=== PATIENT | male | born 1935 | race Caucasian/White ===

== ENCOUNTER 2020-07-21 11:58 | Emergency (ER) | payer OTHER ==
[~2020-07-21 11:58] MED LIST: PROTONIX 40MG T40 MG PO; TYLENOL #31 EACH PO
[2020-07-21 13:44] LABS: BASOPHIL 0.3 % (0-2); EOSINOPHIL 2.5 % (0-7); HCT 31.2 % (42.0-52.0); HGB 9.4 g/dl (13.2-18.0); LYMPHOCYTE 11.6 % (15-48); MCH 27.2 pg (25.0-31.0); MCHC 30.1 g/dL (32.0-36.0); MCV 90.2 fL (78.0-100.0); MONOCYTE 6.4 % (0-12); MPV 11.6 fL (6.0-9.5); NEUTROPHIL 78.9 % (41-80); NRBC 0; PLT 225 K/uL (150-400); RBC 3.46 M/uL (4.70-6.00); RDW 15.6 % (11.5-14.0); WBC 9.9 K/uL (4.0-10.5)
[2020-07-21 13:58] LABS: INR 1.11 (0.9-1.2); PROTHROMBIN TIME 13.6 SECONDS (11.4-13.6); PTT 34.3 SECONDS (22.2-34.7)
[2020-07-21 13:59] LABS: D-DIMER 1.4 ug/mLFEU (0.00-0.41)
[2020-07-21 14:01] LABS: ALBUMIN 3.1 g/dL (3.4-5.0); BILIRUBIN - TOTAL 0.4 mg/dL (0.2-1.0); BUN/CREAT RATIO (CALC) 14.1 RATIO; CREATININE 2.13 mg/dL (0.67-1.17); GLOBULIN (CALCULATION) 3.8 g/dL; POTASSIUM 4.9 mmol/L (3.5-5.1); TOTAL PROTEIN 6.9 g/dL (6.4-8.2)
[2020-07-21 14:30] LABS: LACTIC ACID 0.9 mmol/L (0.4-1.9)
== END 2020-07-21 16:48 | disposition other institution (70) ==
LOC: FER 11:58
PROVIDERS: Emergency Medicine
DX: J96.02 Acute respiratory failure with hypercapnia (principal); R79.1 Abnormal coagulation profile; I11.0 Hypertensive heart disease with heart failure; I50.9 Heart failure, unspecified; I25.10 Atherosclerotic heart disease of native coronary artery without angina pectoris; E11.9 Type 2 diabetes mellitus without complications; J44.9 Chronic obstructive pulmonary disease, unspecified; Z85.118 Personal history of other malignant neoplasm of bronchus and lung; Z95.1 Presence of aortocoronary bypass graft; Z95.0 Presence of cardiac pacemaker; Z79.82 Long term (current) use of aspirin; Z99.81 Dependence on supplemental oxygen; Z87.891 Personal history of nicotine dependence; Z20.822 Contact with and (suspected) exposure to COVID-19
CPT/HCPCS: 36415; 36600; 71045; 80053; 82803; 83605; 83880; 84484; 85025; 85379; 85610; 85730; 87040; 93005; J2930; U0002

== ENCOUNTER 2020-08-13 13:03 | Emergency (ER) | payer OTHER ==
[2020-08-13 15:26] LABS: BASOPHIL 0.1 % (0-2); EOSINOPHIL 4.6 % (0-7); HCT 30.5 % (42.0-52.0); HGB 9.3 g/dl (13.2-18.0); LYMPHOCYTE 10.5 % (15-48); MCH 26.8 pg (25.0-31.0); MCHC 30.5 g/dL (32.0-36.0); MCV 87.9 fL (78.0-100.0); MONOCYTE 7.9 % (0-12); MPV 11.8 fL (6.0-9.5); NEUTROPHIL 76.6 % (41-80); NRBC 0; PLT 156 K/uL (150-400); RBC 3.47 M/uL (4.70-6.00); RDW 16.3 % (11.5-14.0); WBC 6.8 K/uL (4.0-10.5)
[2020-08-13 15:48] LABS: ALBUMIN 2.5 g/dL (3.4-5.0); BILIRUBIN - TOTAL 0.4 mg/dL (0.2-1.0); BUN/CREAT RATIO (CALC) 15.4 RATIO; CREATININE 2.27 mg/dL (0.67-1.17); GLOBULIN (CALCULATION) 3.6 g/dL; POTASSIUM 4.9 mmol/L (3.5-5.1); TOTAL PROTEIN 6.1 g/dL (6.4-8.2)
== END 2020-08-14 04:06 | disposition other institution (70) ==
LOC: FER 13:03
PROVIDERS: Physician Assistant
DX: I50.9 Heart failure, unspecified (principal); E11.22 Type 2 diabetes mellitus with diabetic chronic kidney disease; E11.65 Type 2 diabetes mellitus with hyperglycemia; N18.9 Chronic kidney disease, unspecified; R05 Cough; Z20.822 Contact with and (suspected) exposure to COVID-19; I25.10 Atherosclerotic heart disease of native coronary artery without angina pectoris; J44.9 Chronic obstructive pulmonary disease, unspecified; Z86.73 Personal history of transient ischemic attack (TIA), and cerebral infarction without residual deficits; Z79.4 Long term (current) use of insulin; Z95.1 Presence of aortocoronary bypass graft; Z87.891 Personal history of nicotine dependence
CPT/HCPCS: 36415; 71045; 80053; 83880; 84484; 85025; 93005; U0002

== ENCOUNTER 2020-08-18 10:35 | Inpatient (IN) | payer OTHER ==
[2020-08-18 13:04] LABS: BILIRUBIN NEGATIVE (NEGATIVE); BLOOD NEGATIVE Ery/uL (NEGATIVE); CLARITY CLEAR (CLEAR); COLOR YELLOW (YELLOW); GLUCOSE (U) NORMAL (NORMAL); LEUKOCYTES NEGATIVE Leu/uL (NEGATIVE); NITRITE NEGATIVE (NEGATIVE); PROTEIN TRACE (LOW) mg/dL (NEGATIVE); SPECIFIC GRAVITY 1.015 (1.001-1.030); UROBILINOGEN 0.2 mg/dL (0.2-1.0); pH 7.5 (5.0-9.0)
[2020-08-18 13:04] LABS: BASOPHIL 0.3 % (0-2); EOSINOPHIL 7.9 % (0-7); HGB 9.9 g/dl (13.2-18.0); LYMPHOCYTE 11.3 % (15-48); MCH 26.8 pg (25.0-31.0); MCHC 30.9 g/dL (32.0-36.0); MCV 86.5 fL (78.0-100.0); MONOCYTE 9.3 % (0-12); MPV 11.4 fL (6.0-9.5); NEUTROPHIL 70.6 % (41-80); NRBC 0; PLT 240 K/uL (150-400); RDW 16.1 % (11.5-14.0); WBC 7.1 K/uL (4.0-10.5)
[2020-08-18 13:08] LABS: PROTHROMBIN TIME 12.5 SECONDS (11.4-13.6); PTT 34.6 SECONDS (22.2-34.7)
[2020-08-18 13:18] LABS: ALBUMIN 2.5 g/dL (3.4-5.0); BILIRUBIN - TOTAL 0.3 mg/dL (0.2-1.0); BUN/CREAT RATIO (CALC) 16.8 RATIO; CREATININE 2.62 mg/dL (0.67-1.17); GLOBULIN (CALCULATION) 3.4 g/dL; POTASSIUM 4.7 mmol/L (3.5-5.1); TOTAL PROTEIN 5.9 g/dL (6.4-8.2)
[2020-08-18 13:23] LABS: BACTERIA TRACE
[2020-08-18 13:30] LABS: LACTIC ACID 1.3 mmol/L (0.4-1.9)
--- NOTE | 2020-08-18 17:49 | NUR ---
PATIENT UNABLE TO VERBALIZE WHAT HOME MEDICATIONS HE TAKES AT HOME. STATES SOMEONE FILLS A BOTTLE FOR HIM AND HE JUST TAKES THEM. HAS BOTTLE AT BEDSIDE WITH MULTIPLE MEDICATIONS IN IT BUT UNSURE WHAT THEY ARE. DAUGHTER LISTED ON FACE SHEET AND UNABLE TO REACH. PATIENT STATES HE DOES NOT GO TO [facility] WHICH IS LISTED UNDER HIS PHARMACY. MEDICATION HISTORY SHOES USED [facility]TS RECENTLY. CALLED [facility] ALSO UNABLE TO REACH. ALSO UNABLE TO ERACH PCP
[2020-08-18] MEDS ORDERED: NORVASC5 MG PO (18:24)
[2020-08-18] MEDS ORDERED: PEPCID AC20 MG PO (18:24)
[2020-08-18] MEDS ORDERED: PLAVIX75 MG PO (18:24)
[2020-08-18] MEDS ORDERED: NEURONTIN300 MG PO (18:25)
[2020-08-18] MEDS ORDERED: SINGULAIR10 MG PO (18:25)
[2020-08-18] MEDS ORDERED: DEMADEX20 MG PO (18:26)
[2020-08-18] MEDS ORDERED: ATORVASTATIN CA80 MG PO (18:35)
[2020-08-18] MEDS ORDERED: PROTONIX 40MG T40 MG PO (18:36)
[2020-08-18] MEDS ORDERED: ISOSORBIDE MONO60 MG PO (18:36)
[2020-08-18] MEDS ORDERED: [UNRECOGNIZED DRUG - OTHER] SC (18:39)
[2020-08-18] MEDS ORDERED: TRESIBA (18:39)
--- NOTE | 2020-08-18 22:36 | NUR ---
RECIEVED MEDICAL RECORD FROM [facility], PLACED IN CHART
[2020-08-19 06:19] LABS: HCT 29.4 % (42.0-52.0); HGB 9.3 g/dl (13.2-18.0); MCH 26.9 pg (25.0-31.0); MCHC 31.6 g/dL (32.0-36.0); MPV 11.3 fL (6.0-9.5); RBC 3.46 M/uL (4.70-6.00); RDW 16.2 % (11.5-14.0); WBC 6.8 K/uL (4.0-10.5)
[2020-08-19 06:39] LABS: BUN/CREAT RATIO (CALC) 16.2 RATIO; CREATININE 2.4 mg/dL (0.67-1.17); POTASSIUM 3.9 mmol/L (3.5-5.1)
[2020-08-20 05:50] LABS: HCT 28.6 % (42.0-52.0); HGB 8.9 g/dl (13.2-18.0); MCH 26.6 pg (25.0-31.0); MCHC 31.1 g/dL (32.0-36.0); MCV 85.6 fL (78.0-100.0); MPV 11.2 fL (6.0-9.5); RBC 3.34 M/uL (4.70-6.00); RDW 16.1 % (11.5-14.0); WBC 5.6 K/uL (4.0-10.5)
[2020-08-20 06:06] LABS: BUN/CREAT RATIO (CALC) 18.8 RATIO; CREATININE 2.18 mg/dL (0.67-1.17); POTASSIUM 4.2 mmol/L (3.5-5.1)
[2020-08-20] MEDS ORDERED: LASIX20 MG PO (10:26)
--- NOTE | 2020-08-26 12:09 | NUR ---
RECEIVED A CALL FROM [facility] ON 08/25 AT 1800. CALLER WAS REQUESTING A COPY OF PATIENT'S D/C MEDICATION LIST. SHE WAS CONCERNED THAT PATIENT WAS TAKING LASIX AND BUMEX AT THE SAME TIME BECAUSE THE PATIENT HAD PICKED UP THE LASIX RX AT ANOTHER PHARMACY AND SHE HAD NO PROOF THAT THE BUMEX WAS DISCONTINUED. BECAUSE THERE WAS NO WAY TO PROVIDE A RELEASE OF INFORMATION FROM THE PATIENT, THE CALLER WAS ASKED TO CALL THE PATIENT AND HIS DAUGHTER. ATTEMPTED MANY TIMES TO CALL THE DAUGHTER AT THE NUMBER ON FILE FROM [facility]. HOWEVER, THERE WAS ONLY A BUSY SIGNAL WITH EVERY ATTEMPT. CALLED THE PATIENT'S NUMBER AND A FEMALE HOME OFFICE CLAIMS EXAMINER ANSWERED THE PHONE. SHE WAS GIVEN THE NUMBER TO [facility] AND ASKED IF SHE HEARD FROM THE PATIENT'S DAUGHTER TO PLEASE HAVE HER CALL AND ASK TO BE TRANSFERRED TO THE PRINT PROJECT MANAGER. PLACED CALL TODAY TO [facility] TO INFORM THEM THAT THIS RN WAS UNABLE TO MAKE CONTACT WITH THE PATIENT OR DAUGHTER. PER DENISE, THE PATIENT NOR DAUGHTER HAVE CONTACTED THEM. WILL ADDRESS IF DAUGHTER RETURNS CALL TO [facility].
== END 2020-08-20 13:36 | disposition home or self-care (01) | DRG 683 ==
LOC: FER 10:35 → FMS 15:28
PROVIDERS: Internal Medicine; ADMIT Hospitalist
DX: N17.9 Acute kidney failure, unspecified (principal); S05.32XA Ocular laceration without prolapse or loss of intraocular tissue, left eye, initial encounter; I13.0 Hypertensive heart and chronic kidney disease with heart failure and stage 1 through stage 4 chronic kidney disease, or unspecified chronic kidney disease; E11.22 Type 2 diabetes mellitus with diabetic chronic kidney disease; N18.30 Chronic kidney disease, stage 3 unspecified; S01.21XA Laceration without foreign body of nose, initial encounter; W01.0XXA Fall on same level from slipping, tripping and stumbling without subsequent striking against object, initial encounter; S01.112A Laceration without foreign body of left eyelid and periocular area, initial encounter; Y93.9 Activity, unspecified; M19.90 Unspecified osteoarthritis, unspecified site; I25.10 Atherosclerotic heart disease of native coronary artery without angina pectoris; Z20.822 Contact with and (suspected) exposure to COVID-19; E11.9 Type 2 diabetes mellitus without complications; I10 Essential (primary) hypertension; Y92.003 Bedroom of unspecified non-institutional (private) residence as the place of occurrence of the external cause; Z95.810 Presence of automatic (implantable) cardiac defibrillator; Z95.2 Presence of prosthetic heart valve; Z85.118 Personal history of other malignant neoplasm of bronchus and lung; Z79.4 Long term (current) use of insulin; Z79.01 Long term (current) use of anticoagulants; J44.9 Chronic obstructive pulmonary disease, unspecified; I50.9 Heart failure, unspecified
CPT/HCPCS: 36415; 70450; 70480; 71045; 72125; 73502; 80048; 80053; 81001; 82962; 83605; 83880; 84145; 84484; 85025; 85610; 85730; 93005; 97166; 97530; J0456; J0696; J7030; J7040; J7050; U0002

== ENCOUNTER 2020-10-07 12:08 | Emergency (ER) | payer OTHER ==
[~2020-10-07 12:08] MED LIST changes: +ATORVASTATIN CA80 MG PO; +DEMADEX20 MG PO; +ISOSORBIDE MONO60 MG PO; +LASIX20 MG PO; +NEURONTIN300 MG PO; +NORVASC5 MG PO; +PEPCID AC20 MG PO; +PLAVIX75 MG PO; +SINGULAIR10 MG PO; +TRESIBA; +[UNRECOGNIZED DRUG - OTHER] SC
[2020-10-07 13:02] LABS: BASOPHIL 0.5 % (0-2); EOSINOPHIL 3.3 % (0-7); HCT 27.1 % (42.0-52.0); HGB 8.4 g/dl (13.2-18.0); LYMPHOCYTE 16.2 % (15-48); MCH 26.6 pg (25.0-31.0); MCV 85.8 fL (78.0-100.0); MONOCYTE 9.7 % (0-12); MPV 11.7 fL (6.0-9.5); NEUTROPHIL 69.9 % (41-80); NRBC 0; PLT 242 K/uL (150-400); RBC 3.16 M/uL (4.70-6.00); RDW 16.4 % (11.5-14.0); WBC 7.6 K/uL (4.0-10.5)
[2020-10-07 13:10] LABS: BUN/CREAT RATIO (CALC) 16.3 RATIO; CREATININE 2.45 mg/dL (0.67-1.17); POTASSIUM 4.1 mmol/L (3.5-5.1)
== END 2020-10-07 14:36 | disposition home or self-care (01) ==
LOC: FER 12:08
PROVIDERS: Nurse Practitioner Family
DX: S01.01XA Laceration without foreign body of scalp, initial encounter (principal); S51.812A Laceration without foreign body of left forearm, initial encounter; I10 Essential (primary) hypertension; E11.9 Type 2 diabetes mellitus without complications; J44.9 Chronic obstructive pulmonary disease, unspecified; Z79.02 Long term (current) use of antithrombotics/antiplatelets; W18.09XA Striking against other object with subsequent fall, initial encounter; Y92.009 Unspecified place in unspecified non-institutional (private) residence as the place of occurrence of the external cause
CPT/HCPCS: 36415; 70450; 72125; 80048; 85025

== ENCOUNTER 2020-10-18 14:33 | Inpatient (IN) | payer OTHER ==
[~2020-10-18] VITALS: Ht 180.3 cm; Wt 91.6 kg
[2020-10-18 16:16] LABS: BASOPHIL 0.4 % (0-2); EOSINOPHIL 2.7 % (0-7); HCT 24.4 % (42.0-52.0); HGB 7.4 g/dl (13.2-18.0); LYMPHOCYTE 13.9 % (15-48); MCH 26.7 pg (25.0-31.0); MCHC 30.3 g/dL (32.0-36.0); MCV 88.1 fL (78.0-100.0); MONOCYTE 8.4 % (0-12); MPV 12.2 fL (6.0-9.5); NEUTROPHIL 74.4 % (41-80); NRBC 0; PLT 236 K/uL (150-400); RBC 2.77 M/uL (4.70-6.00); RDW 16.6 % (11.5-14.0); WBC 9.7 K/uL (4.0-10.5)
[2020-10-18 16:25] LABS: BUN/CREAT RATIO (CALC) 17.8 RATIO; CREATININE 2.42 mg/dL (0.67-1.17)
[2020-10-18 19:20] LABS: CORONAVIRUS 2019 SARS-COV-2 NEGATIVE (NEGATIVE); INFLUENZA A NAA NEGATIVE (NEGATIVE)
[2020-10-18 22:36] LABS: IRON % SATURATION 8.6 %SAT (20-50)
[2020-10-18] MEDS ORDERED: ASPIRIN EC81 MG PO (23:20)
[2020-10-18] MEDS ORDERED: VENTOLIN HFA18 GM INH (23:21)
[2020-10-18] MEDS ORDERED: BUMETANIDE2 MG PO (23:28)
[2020-10-18] MEDS ORDERED: COREG25 MG PO (23:29)
[2020-10-18] MEDS ORDERED: BUMEX1 MG PO (23:29)
[2020-10-18] MEDS ORDERED: SPIRIVA18 MCG INH (23:30)
[2020-10-18] MEDS ORDERED: VITAMIN B-12100 MCG PO (23:31)
[2020-10-19 04:26] LABS: BASOPHIL 0.2 % (0-2); EOSINOPHIL 2.8 % (0-7); HCT 24.1 % (42.0-52.0); HGB 7.2 g/dl (13.2-18.0); LYMPHOCYTE 13.3 % (15-48); MCHC 29.9 g/dL (32.0-36.0); MONOCYTE 7.7 % (0-12); MPV 11.2 fL (6.0-9.5); NEUTROPHIL 75.8 % (41-80); NRBC 0; PLT 222 K/uL (150-400); RBC 2.77 M/uL (4.70-6.00); RDW 16.6 % (11.5-14.0); WBC 8.2 K/uL (4.0-10.5)
[2020-10-19 04:45] LABS: BUN/CREAT RATIO (CALC) 18.5 RATIO; CREATININE 2.32 mg/dL (0.67-1.17)
[2020-10-19 14:59] LABS: BUN/CREAT RATIO (CALC) 18.2 RATIO; CREATININE 2.25 mg/dL (0.67-1.17); POTASSIUM 4.4 mmol/L (3.5-5.1)
[2020-10-20 05:58] LABS: BILIRUBIN NEGATIVE (NEGATIVE); BLOOD NEGATIVE Ery/uL (NEGATIVE); CLARITY CLEAR (CLEAR); COLOR YELLOW (YELLOW); GLUCOSE (U) NORMAL (NORMAL); LEUKOCYTES NEGATIVE Leu/uL (NEGATIVE); NITRITE NEGATIVE (NEGATIVE); PROTEIN NEGATIVE (NEGATIVE); SPECIFIC GRAVITY 1.015 (1.001-1.030); UROBILINOGEN 0.2 mg/dL (0.2-1.0)
[2020-10-20 06:26] LABS: URINARY RBC RARE; URINARY WBC RARE
[2020-10-20 06:26] LABS: BASOPHIL 0.3 % (0-2); EOSINOPHIL 2.6 % (0-7); HCT 30.6 % (42.0-52.0); LYMPHOCYTE 12.1 % (15-48); MCH 27.6 pg (25.0-31.0); MCHC 31.7 g/dL (32.0-36.0); MCV 87.2 fL (78.0-100.0); MONOCYTE 7.9 % (0-12); MPV 11.6 fL (6.0-9.5); NEUTROPHIL 76.9 % (41-80); NRBC 0; PLT 220 K/uL (150-400); RBC 3.51 M/uL (4.70-6.00); WBC 9.9 K/uL (4.0-10.5)
[2020-10-20 06:27] LABS: SQUAMOUS EPITHELIAL CELLS RARE
[2020-10-20 06:29] LABS: HGB 9.7 g/dl (13.2-18.0)
[2020-10-20 06:54] LABS: ALBUMIN 2.9 g/dL (3.4-5.0); BUN/CREAT RATIO (CALC) 17.6 RATIO; CREATININE 2.21 mg/dL (0.67-1.17); GLOBULIN (CALCULATION) 3.5 g/dL; MAGNESIUM 2.1 mg/dL (1.8-2.4); POTASSIUM 4.4 mmol/L (3.5-5.1); TOTAL PROTEIN 6.4 g/dL (6.4-8.2)
--- NOTE | 2020-10-20 12:59 | NUR ---
10/20/20 Mr. Lacey and his girlfriend of 42 years share an apartment together. He has home 02 at 2 L, rw, motorized wc, 3in1, s. chair, and lift chair. [facility] has been notified of admission via CONEXANCE MD. Please notify [facility] at [phone] if patient is discharged over the weekend.
[2020-10-21 04:34] LABS: BASOPHIL 0.3 % (0-2); EOSINOPHIL 3.2 % (0-7); HCT 28.9 % (42.0-52.0); HGB 9.2 g/dl (13.2-18.0); LYMPHOCYTE 11.8 % (15-48); MCH 27.5 pg (25.0-31.0); MCHC 31.8 g/dL (32.0-36.0); MCV 86.5 fL (78.0-100.0); MONOCYTE 9.4 % (0-12); MPV 11.2 fL (6.0-9.5); NEUTROPHIL 75.1 % (41-80); NRBC 0; PLT 210 K/uL (150-400); RBC 3.34 M/uL (4.70-6.00); RDW 16.1 % (11.5-14.0); WBC 9.3 K/uL (4.0-10.5)
[2020-10-21 05:02] LABS: BUN/CREAT RATIO (CALC) 17.8 RATIO; CREATININE 2.3 mg/dL (0.67-1.17); MAGNESIUM 2.1 mg/dL (1.8-2.4); PHOSPHORUS 4.1 mg/dL (2.6-4.7)
[2020-10-22 04:12] LABS: BASOPHIL 0.3 % (0-2); EOSINOPHIL 3.4 % (0-7); HCT 32.1 % (42.0-52.0); HGB 10.2 g/dl (13.2-18.0); LYMPHOCYTE 12.5 % (15-48); MCH 27.3 pg (25.0-31.0); MCHC 31.8 g/dL (32.0-36.0); MCV 85.8 fL (78.0-100.0); MONOCYTE 9.4 % (0-12); MPV 11.5 fL (6.0-9.5); NEUTROPHIL 74.1 % (41-80); NRBC 0; PLT 220 K/uL (150-400); RBC 3.74 M/uL (4.70-6.00); RDW 15.9 % (11.5-14.0); WBC 8.8 K/uL (4.0-10.5)
[2020-10-22 04:32] LABS: BUN/CREAT RATIO (CALC) 20.6 RATIO; CREATININE 2.57 mg/dL (0.67-1.17); PHOSPHORUS 4.3 mg/dL (2.6-4.7); POTASSIUM 3.9 mmol/L (3.5-5.1)
[2020-10-23 05:43] LABS: BASOPHIL 0.2 % (0-2); EOSINOPHIL 3.1 % (0-7); HCT 31.1 % (42.0-52.0); HGB 10.2 g/dl (13.2-18.0); LYMPHOCYTE 11.1 % (15-48); MCH 27.6 pg (25.0-31.0); MCHC 32.8 g/dL (32.0-36.0); MCV 84.1 fL (78.0-100.0); MONOCYTE 9.1 % (0-12); MPV 11.1 fL (6.0-9.5); NEUTROPHIL 76.1 % (41-80); NRBC 0; PLT 231 K/uL (150-400); WBC 11.6 K/uL (4.0-10.5)
[2020-10-23 05:59] LABS: BUN/CREAT RATIO (CALC) 22.5 RATIO; CREATININE 3.11 mg/dL (0.67-1.17); POTASSIUM 3.6 mmol/L (3.5-5.1)
[2020-10-24 05:44] LABS: HCT 32.4 % (42.0-52.0); HGB 10.6 g/dl (13.2-18.0); MCH 27.3 pg (25.0-31.0); MCHC 32.7 g/dL (32.0-36.0); MCV 83.5 fL (78.0-100.0); MPV 12.2 fL (6.0-9.5); RBC 3.88 M/uL (4.70-6.00); RDW 16.2 % (11.5-14.0); WBC 11.8 K/uL (4.0-10.5)
[2020-10-24 06:24] LABS: CREATININE 3.48 mg/dL (0.67-1.17); POTASSIUM 4.1 mmol/L (3.5-5.1)
--- NOTE | 2020-10-24 14:47 | NUR ---
DR GONZALEZ CONSULTED FOR PT VIA TELEPHONE AT THIS TIME. WAS GIVEN PT BUN, CREATININE, CO2, BICARB, OUTPUT AMOUNT, MEDICATION LIST, ASSESSMENT OF BREATHING, RECENT MED HISTORY AND NEW ORDERS WERE GIVEN TO BLADDER SCAN AFTER NEXT VOID, OBTAIN A URINE ANALYSIS, DC NORVASC, CHECK MAG PHOS CBC AND BMP IN THE AM
[2020-10-25 05:54] LABS: BASOPHIL 0.3 % (0-2); EOSINOPHIL 1.5 % (0-7); HCT 30.9 % (42.0-52.0); HGB 10.1 g/dl (13.2-18.0); LYMPHOCYTE 9.2 % (15-48); MCH 27.2 pg (25.0-31.0); MCHC 32.7 g/dL (32.0-36.0); MCV 83.1 fL (78.0-100.0); MONOCYTE 9.7 % (0-12); NRBC 0; PLT 222 K/uL (150-400); RBC 3.72 M/uL (4.70-6.00); RDW 15.9 % (11.5-14.0); WBC 11.7 K/uL (4.0-10.5)
[2020-10-25 06:12] LABS: CREATININE 3.64 mg/dL (0.67-1.17); MAGNESIUM 2.6 mg/dL (1.8-2.4); PHOSPHORUS 5.9 mg/dL (2.6-4.7); POTASSIUM 3.8 mmol/L (3.5-5.1)
--- NOTE | 2020-10-25 06:28 | NUR ---
PT INCONTINENT OF URINE OVERNIGHT. SOILED BED X1 TIME. UNABLE TO GET UA. PVR IMMEDIATELY FOLLOWING INCONTINENCE 246. PT UNABLE TO PEE IN URINAL AFTER PVR OBTAINED.
[2020-10-26 08:25] LABS: HCT 30.7 % (42.0-52.0); MCH 27.2 pg (25.0-31.0); MCHC 32.6 g/dL (32.0-36.0); MCV 83.4 fL (78.0-100.0); RBC 3.68 M/uL (4.70-6.00); RDW 15.7 % (11.5-14.0); WBC 9.5 K/uL (4.0-10.5)
[2020-10-26 08:42] LABS: CREATININE 3.39 mg/dL (0.67-1.17); POTASSIUM 3.5 mmol/L (3.5-5.1)
--- NOTE | 2020-10-26 11:53 | NUR ---
10/26/20 Mr. Lacey has been accepted at [facility] for transfer when a bed is available. Marielle Dahl at [place] was notified.
== END 2020-10-26 20:24 | disposition other institution (70) | DRG 280 ==
LOC: FER 14:33 → FMS 18:27 → FTCU 18:27
PROVIDERS: Hospitalist; Internal Medicine Cardiovascular Disease; Internal Medicine Nephrology; Nurse Practitioner; Nurse Practitioner Family; ADMIT Internal Medicine
PROC: 30233N1 Transfusion of Nonautologous Red Blood Cells into Peripheral Vein, Percutaneous Approach (ICD-10-PCS; principal; 2020-10-19)
PROC: 30233N1 Transfusion of Nonautologous Red Blood Cells into Peripheral Vein, Percutaneous Approach (ICD-10-PCS; 2020-10-20)
DX: I50.43 Acute on chronic combined systolic (congestive) and diastolic (congestive) heart failure (principal); I21.A1 Myocardial infarction type 2; J96.21 Acute and chronic respiratory failure with hypoxia; J96.22 Acute and chronic respiratory failure with hypercapnia; J44.1 Chronic obstructive pulmonary disease with (acute) exacerbation; N17.9 Acute kidney failure, unspecified; N18.4 Chronic kidney disease, stage 4 (severe); J98.11 Atelectasis; R19.5 Other fecal abnormalities; D63.1 Anemia in chronic kidney disease; Z20.822 Contact with and (suspected) exposure to COVID-19; D50.9 Iron deficiency anemia, unspecified; E11.22 Type 2 diabetes mellitus with diabetic chronic kidney disease; M19.90 Unspecified osteoarthritis, unspecified site; R53.1 Weakness; I44.7 Left bundle-branch block, unspecified; I48.0 Paroxysmal atrial fibrillation; E78.5 Hyperlipidemia, unspecified; I25.10 Atherosclerotic heart disease of native coronary artery without angina pectoris; I69.398 Other sequelae of cerebral infarction; Z85.118 Personal history of other malignant neoplasm of bronchus and lung; Z92.21 Personal history of antineoplastic chemotherapy; Z90.2 Acquired absence of lung [part of]; Z95.4 Presence of other heart-valve replacement; Z95.1 Presence of aortocoronary bypass graft; I25.2 Old myocardial infarction; Z99.81 Dependence on supplemental oxygen; Z87.891 Personal history of nicotine dependence; Z95.810 Presence of automatic (implantable) cardiac defibrillator
CPT/HCPCS: 36415; 36430; 36600; 71045; 71250; 74022; 80048; 80053; 81001; 82270; 82728; 82803; 82962; 83540; 83550; 83605; 83735; 83880; 84100; 84484; 85025; 86850; 86900; 86901; 86922; 87088; 93005; 94640; 97116; 97161; 97166; 97530; 97535; J1644; J7030; J7040; J7050; P9016; U0002

== ENCOUNTER 2020-11-12 17:09 | Emergency (ER) | payer OTHER ==
[~2020-11-12 17:09] MED LIST changes: +ASPIRIN EC81 MG PO; +BUMETANIDE2 MG PO; +BUMEX1 MG PO; +COREG25 MG PO; +SPIRIVA18 MCG INH; +VENTOLIN HFA18 GM INH; +VITAMIN B-12100 MCG PO
[2020-11-12 17:59] LABS: BASOPHIL 0.2 % (0-2); EOSINOPHIL 3.4 % (0-7); HCT 31.7 % (42.0-52.0); HGB 9.3 g/dl (13.2-18.0); LYMPHOCYTE 12.5 % (15-48); MCH 26.5 pg (25.0-31.0); MCHC 29.3 g/dL (32.0-36.0); MCV 90.3 fL (78.0-100.0); MONOCYTE 8.3 % (0-12); MPV 11.7 fL (6.0-9.5); NEUTROPHIL 75.4 % (41-80); NRBC 0; PLT 256 K/uL (150-400); RBC 3.51 M/uL (4.70-6.00); WBC 8.3 K/uL (4.0-10.5)
[2020-11-12 18:12] LABS: BILIRUBIN NEGATIVE (NEGATIVE); BLOOD NEGATIVE Ery/uL (NEGATIVE); CLARITY CLEAR (CLEAR); COLOR YELLOW (YELLOW); GLUCOSE (U) 2+ mg/dL (NORMAL); LEUKOCYTES NEGATIVE Leu/uL (NEGATIVE); NITRITE NEGATIVE (NEGATIVE); PROTEIN TRACE (LOW) mg/dL (NEGATIVE)
[2020-11-12 18:28] LABS: ALBUMIN 2.9 g/dL (3.4-5.0); BILIRUBIN - TOTAL 0.4 mg/dL (0.2-1.0); CREATININE 2.01 mg/dL (0.67-1.17); POTASSIUM 5.6 mmol/L (3.5-5.1); TOTAL PROTEIN 6.9 g/dL (6.4-8.2)
[2020-11-12 20:06] LABS: LACTIC ACID 1.1 mmol/L (0.4-1.9)
[2020-11-12] MEDS ORDERED: BENTYL10 MG PO (22:01)
[2020-11-12] MEDS ORDERED: MIRALAX 238GM238 GM PO (22:01)
== END 2020-11-12 22:20 | disposition home or self-care (01) ==
LOC: FER 17:09
PROVIDERS: Emergency Medicine; Emergency Medicine Emergency Medical Services
DX: R10.84 Generalized abdominal pain (principal); K59.00 Constipation, unspecified; J44.9 Chronic obstructive pulmonary disease, unspecified; I12.9 Hypertensive chronic kidney disease with stage 1 through stage 4 chronic kidney disease, or unspecified chronic kidney disease; E11.22 Type 2 diabetes mellitus with diabetic chronic kidney disease; N18.9 Chronic kidney disease, unspecified
CPT/HCPCS: 36415; 80053; 81003; 82150; 83605; 83690; 84145; 85025

== ENCOUNTER 2020-12-22 14:29 | Emergency (ER) | payer OTHER ==
[~2020-12-22 14:29] MED LIST changes: +BENTYL10 MG PO; +MIRALAX 238GM238 GM PO
[2020-12-22 15:45] LABS: BASOPHIL 0.4 % (0-2); EOSINOPHIL 3.7 % (0-7); HCT 30.5 % (42.0-52.0); HGB 9.4 g/dl (13.2-18.0); LYMPHOCYTE 20.1 % (15-48); MCH 26.3 pg (25.0-31.0); MCHC 30.8 g/dL (32.0-36.0); MCV 85.2 fL (78.0-100.0); MONOCYTE 9.5 % (0-12); MPV 11.8 fL (6.0-9.5); NRBC 0; PLT 208 K/uL (150-400); RBC 3.58 M/uL (4.70-6.00); RDW 16.2 % (11.5-14.0); WBC 7.7 K/uL (4.0-10.5)
[2020-12-22 15:56] LABS: ALBUMIN 3.1 g/dL (3.4-5.0); BILIRUBIN - TOTAL 0.4 mg/dL (0.2-1.0); CREATININE 2.65 mg/dL (0.67-1.17); POTASSIUM 3.8 mmol/L (3.5-5.1); TOTAL PROTEIN 7.1 g/dL (6.4-8.2)
[2020-12-22] MEDS ORDERED: AUGMENTIN 875-1 EACH PO (18:22)
== END 2020-12-22 18:47 | disposition home or self-care (01) ==
LOC: FER 14:29
PROVIDERS: Physician Assistant
DX: L03.116 Cellulitis of left lower limb (principal); I13.0 Hypertensive heart and chronic kidney disease with heart failure and stage 1 through stage 4 chronic kidney disease, or unspecified chronic kidney disease; E11.22 Type 2 diabetes mellitus with diabetic chronic kidney disease; E11.65 Type 2 diabetes mellitus with hyperglycemia; N18.9 Chronic kidney disease, unspecified; I50.9 Heart failure, unspecified; D63.1 Anemia in chronic kidney disease; E11.9 Type 2 diabetes mellitus without complications; J44.9 Chronic obstructive pulmonary disease, unspecified; Z86.73 Personal history of transient ischemic attack (TIA), and cerebral infarction without residual deficits; Z79.82 Long term (current) use of aspirin; Z79.02 Long term (current) use of antithrombotics/antiplatelets
CPT/HCPCS: 36415; 73620; 80053; 85025; 86140; 90471; 90715

== ENCOUNTER 2021-01-03 17:08 | Emergency (ER) | payer OTHER ==
[~2021-01-03 17:08] MED LIST changes: +AUGMENTIN 875-1 EACH PO
[2021-01-03 18:09] LABS: BASOPHIL 0.4 % (0-2); EOSINOPHIL 2.6 % (0-7); HCT 30.5 % (42.0-52.0); HGB 9.2 g/dl (13.2-18.0); MCH 25.8 pg (25.0-31.0); MCHC 30.2 g/dL (32.0-36.0); MCV 85.7 fL (78.0-100.0); MONOCYTE 6.4 % (0-12); MPV 11.2 fL (6.0-9.5); NEUTROPHIL 72.2 % (41-80); NRBC 0; PLT 311 K/uL (150-400); RBC 3.56 M/uL (4.70-6.00); WBC 7.8 K/uL (4.0-10.5)
[2021-01-03 18:31] LABS: ALBUMIN 2.9 g/dL (3.4-5.0); BILIRUBIN - TOTAL 0.2 mg/dL (0.2-1.0); CREATININE 2.07 mg/dL (0.67-1.17); GLOBULIN (CALCULATION) 4.2 g/dL; POTASSIUM 4.2 mmol/L (3.5-5.1); TOTAL PROTEIN 7.1 g/dL (6.4-8.2)
== END 2021-01-03 19:56 | disposition left against medical advice (07) ==
LOC: FER 17:08
PROVIDERS: Emergency Medicine
DX: Z53.8 Procedure and treatment not carried out for other reasons (principal)
CPT/HCPCS: 36415; 80053; 85025; 99281

== ENCOUNTER 2021-03-02 05:37 | Emergency (ER) | payer OTHER ==
[2021-03-02 05:58] LABS: BASOPHIL 0.3 % (0-2); EOSINOPHIL 2.6 % (0-7); HCT 32.4 % (42.0-52.0); LYMPHOCYTE 11.7 % (15-48); MCH 26.4 pg (25.0-31.0); MCHC 30.9 g/dL (32.0-36.0); MCV 85.5 fL (78.0-100.0); MONOCYTE 7.8 % (0-12); MPV 11.6 fL (6.0-9.5); NEUTROPHIL 77.2 % (41-80); NRBC 0; PLT 254 K/uL (150-400); RBC 3.79 M/uL (4.70-6.00); RDW 17.3 % (11.5-14.0); WBC 10.2 K/uL (4.0-10.5)
[2021-03-02 06:23] LABS: ALBUMIN 2.9 g/dL (3.4-5.0); BILIRUBIN - TOTAL 0.2 mg/dL (0.2-1.0); BUN/CREAT RATIO (CALC) 13.4 RATIO; CREATININE 2.09 mg/dL (0.67-1.17); GLOBULIN (CALCULATION) 3.7 g/dL; POTASSIUM 3.3 mmol/L (3.5-5.1); TOTAL PROTEIN 6.6 g/dL (6.4-8.2)
[2021-03-02 06:36] LABS: LACTIC ACID 1.2 mmol/L (0.4-1.9)
[2021-03-02 09:10] LABS: BILIRUBIN NEGATIVE (NEGATIVE); BLOOD NEGATIVE Ery/uL (NEGATIVE); CLARITY CLEAR (CLEAR); COLOR YELLOW (YELLOW); GLUCOSE (U) NORMAL (NORMAL); LEUKOCYTES NEGATIVE Leu/uL (NEGATIVE); NITRITE NEGATIVE (NEGATIVE); PROTEIN NEGATIVE (NEGATIVE); SPECIFIC GRAVITY 1.025 (1.001-1.030); UROBILINOGEN 0.2 mg/dL (0.2-1.0); pH 5.5 (5.0-9.0)
== END 2021-03-02 10:09 | disposition home or self-care (01) ==
LOC: FER 05:37
PROVIDERS: Emergency Medicine Emergency Medical Services
DX: E11.649 Type 2 diabetes mellitus with hypoglycemia without coma (principal); E11.22 Type 2 diabetes mellitus with diabetic chronic kidney disease; I13.0 Hypertensive heart and chronic kidney disease with heart failure and stage 1 through stage 4 chronic kidney disease, or unspecified chronic kidney disease; N18.9 Chronic kidney disease, unspecified; I50.9 Heart failure, unspecified; I21.4 Non-ST elevation (NSTEMI) myocardial infarction; R77.8 Other specified abnormalities of plasma proteins; I25.2 Old myocardial infarction; I48.91 Unspecified atrial fibrillation; J44.9 Chronic obstructive pulmonary disease, unspecified; Z79.4 Long term (current) use of insulin; Z86.73 Personal history of transient ischemic attack (TIA), and cerebral infarction without residual deficits; Z20.822 Contact with and (suspected) exposure to COVID-19
CPT/HCPCS: 36415; 70450; 71045; 71250; 72125; 80053; 81003; 82550; 83605; 83690; 84484; 85025; 87040; 93005; U0002

== ENCOUNTER 2021-03-08 10:00 | Inpatient (IN) | payer OTHER ==
[~2021-03-08] VITALS: Ht 180.3 cm; Wt 91.7 kg
[2021-03-08 11:23] LABS: BASOPHIL 0.3 % (0-2); EOSINOPHIL 2.1 % (0-7); HCT 30.6 % (42.0-52.0); HGB 9.3 g/dl (13.2-18.0); LYMPHOCYTE 10.2 % (15-48); MCH 26.2 pg (25.0-31.0); MCHC 30.4 g/dL (32.0-36.0); MCV 86.2 fL (78.0-100.0); MONOCYTE 12.1 % (0-12); MPV 12.6 fL (6.0-9.5); NRBC 0; PLT 258 K/uL (150-400); RBC 3.55 M/uL (4.70-6.00); RDW 17.2 % (11.5-14.0); WBC 10.2 K/uL (4.0-10.5)
[2021-03-08 11:35] LABS: INR 1.1 (0.9-1.2); PROTHROMBIN TIME 13.6 SECONDS (11.8-13.4)
[2021-03-08 11:45] LABS: BILIRUBIN NEGATIVE (NEGATIVE); BLOOD 1+ Ery/uL (NEGATIVE); CLARITY CLEAR (CLEAR); COLOR YELLOW (YELLOW); GLUCOSE (U) 3+ mg/dL (NORMAL); LEUKOCYTES NEGATIVE Leu/uL (NEGATIVE); NITRITE NEGATIVE (NEGATIVE); PROTEIN TRACE (LOW) mg/dL (NEGATIVE); UROBILINOGEN 0.2 mg/dL (0.2-1.0)
[2021-03-08 11:48] LABS: ALBUMIN 2.9 g/dL (3.4-5.0); ALKALINE PHOSHATASE 151 U/L (46-116); ALT 22 U/L (16-63); AST 28 U/L (15-37); BILIRUBIN - TOTAL 0.4 mg/dL (0.2-1.0); BUN 23 mg/dL (7-18); C-REACTIVE PROTEIN >18.00 mg/dL (<=0.90); CHLORIDE 104 mmol/L (98-107); CO2 (BICARBONATE) 27 mmol/L (21-32); CREATININE 1.77 mg/dL (0.67-1.17); GLOBULIN (CALCULATION) 3.5 g/dL; GLUCOSE 217 mg/dL (74-106); LDH 194 U/L (85-227); LIPASE 69 U/L (73-393); MAGNESIUM 2.1 mg/dL (1.8-2.4); POTASSIUM 4.4 mmol/L (3.5-5.1); TOTAL PROTEIN 6.4 g/dL (6.4-8.2)
[2021-03-08 11:51] LABS: BACTERIA TRACE; SQUAMOUS EPITHELIAL CELLS >50; URINARY WBC RARE
[2021-03-08 12:44] LABS: PTT 44.5 SECONDS (24.4-34.7)
[2021-03-08] MEDS ORDERED: PLAVIX75 MG PO (14:40)
[2021-03-08] MEDS ORDERED: LIPITOR40 MG PO (14:41)
[2021-03-08] MEDS ORDERED: FAMOTIDINE20 MG PO (14:41)
[2021-03-08] MEDS ORDERED: BUMEX1 MG PO (14:42)
[2021-03-08] MEDS ORDERED: CARVEDILOL25 MG PO (14:42)
[2021-03-08] MEDS ORDERED: PROTONIX 40MG T40 MG PO (14:42)
[2021-03-08] MEDS ORDERED: SINGULAIR10 MG PO ×2 (14:42→15:42)
[2021-03-08] MEDS ORDERED: NORVASC5 MG PO (15:41)
[2021-03-08] MEDS ORDERED: VITAMIN B125000 MCG PO (15:41)
[2021-03-08] MEDS ORDERED: ASPIRIN EC81 MG PO (15:42)
[2021-03-08] MEDS ORDERED: NEURONTIN100 MG PO (15:42)
[2021-03-08] MEDS ORDERED: ISOSORBIDE DINI30 MG PO (15:43)
[2021-03-08] MEDS ORDERED: COREG25 MG PO (15:44)
[2021-03-09 07:37] LABS: BASOPHIL 0.2 % (0-2); EOSINOPHIL 2.8 % (0-7); HGB 9.2 g/dl (13.2-18.0); MCH 26.6 pg (25.0-31.0); MCHC 30.7 g/dL (32.0-36.0); MCV 86.7 fL (78.0-100.0); MONOCYTE 11.4 % (0-12); MPV 11.8 fL (6.0-9.5); NEUTROPHIL 73.3 % (41-80); NRBC 0; PLT 261 K/uL (150-400); RBC 3.46 M/uL (4.70-6.00); RDW 17.3 % (11.5-14.0); WBC 9.1 K/uL (4.0-10.5)
[2021-03-09 07:56] LABS: BUN 21 mg/dL (7-18); BUN/CREAT RATIO (CALC) 11.1 RATIO; C-REACTIVE PROTEIN >18.00 mg/dL (<=0.90); CHLORIDE 104 mmol/L (98-107); CO2 (BICARBONATE) 30 mmol/L (21-32); GLUCOSE 141 mg/dL (74-106); POTASSIUM 4.5 mmol/L (3.5-5.1)
[2021-03-09 08:28] LABS: RETICULOCYTE COUNT 1.3 % (1.0-2.0)
[2021-03-09 08:32] LABS: IRON % SATURATION 39.8 %SAT (20-50)
[2021-03-09 08:59] LABS: FOLIC ACID (SERUM) 12.4 ng/mL (8.6-58.9)
--- NOTE | 2021-03-09 14:33 | NUR ---
03/09/21 Mr. Lacey and his s.o. of 40+ years shared a subsidized rent apartment. They are able to meet their financial obligations with the assistance of foodstamps. Mr. Lacey has 2 children and his GF has 2 children. His daughter cleans house and prepares meals for them.- Mr. Lacey has a power wc, 02 at 2L, 3in1, s. chair, and lift chair. [facility] has followed in the past and he wishes for the services to be resumed. A referral has been made to [facility] via Omar. [facility] [phone], if patient discharges over the weekend.
[2021-03-10 06:25] LABS: BASOPHIL 0.5 % (0-2); HCT 28.3 % (42.0-52.0); HGB 8.7 g/dl (13.2-18.0); LYMPHOCYTE 13.4 % (15-48); MCH 26.5 pg (25.0-31.0); MCHC 30.7 g/dL (32.0-36.0); MCV 86.3 fL (78.0-100.0); MONOCYTE 11.8 % (0-12); MPV 11.4 fL (6.0-9.5); NEUTROPHIL 70.9 % (41-80); NRBC 0; PLT 267 K/uL (150-400); RBC 3.28 M/uL (4.70-6.00); RDW 17.3 % (11.5-14.0); WBC 8.4 K/uL (4.0-10.5)
[2021-03-10 06:52] LABS: ALBUMIN 2.6 g/dL (3.4-5.0); BILIRUBIN - TOTAL 0.4 mg/dL (0.2-1.0); BUN/CREAT RATIO (CALC) 11.3 RATIO; CREATININE 2.03 mg/dL (0.67-1.17); GLOBULIN (CALCULATION) 3.1 g/dL; MAGNESIUM 1.9 mg/dL (1.8-2.4); PHOSPHORUS 3.8 mg/dL (2.6-4.7); POTASSIUM 4.4 mmol/L (3.5-5.1); TOTAL PROTEIN 5.7 g/dL (6.4-8.2)
[2021-03-11 04:22] LABS: BASOPHIL 0.4 % (0-2); EOSINOPHIL 3.4 % (0-7); HCT 27.5 % (42.0-52.0); HGB 8.5 g/dl (13.2-18.0); LYMPHOCYTE 14.6 % (15-48); MCH 26.6 pg (25.0-31.0); MCHC 30.9 g/dL (32.0-36.0); MCV 86.2 fL (78.0-100.0); MONOCYTE 12.1 % (0-12); MPV 11.5 fL (6.0-9.5); NEUTROPHIL 69.1 % (41-80); NRBC 0; PLT 264 K/uL (150-400); RBC 3.19 M/uL (4.70-6.00); RDW 17.3 % (11.5-14.0)
[2021-03-11 05:12] LABS: BUN/CREAT RATIO (CALC) 13.6 RATIO; CREATININE 2.13 mg/dL (0.67-1.17); MAGNESIUM 2.1 mg/dL (1.8-2.4); POTASSIUM 4.4 mmol/L (3.5-5.1)
== END 2021-03-11 15:44 | disposition home health service (06) | DRG 280 ==
LOC: FER 10:00 → FMS 14:03
PROVIDERS: Emergency Medicine; Internal Medicine Cardiovascular Disease; ADMIT Internal Medicine
DX: I13.0 Hypertensive heart and chronic kidney disease with heart failure and stage 1 through stage 4 chronic kidney disease, or unspecified chronic kidney disease (principal); I21.A1 Myocardial infarction type 2; I50.23 Acute on chronic systolic (congestive) heart failure; N17.9 Acute kidney failure, unspecified; N18.4 Chronic kidney disease, stage 4 (severe); J96.10 Chronic respiratory failure, unspecified whether with hypoxia or hypercapnia; D63.1 Anemia in chronic kidney disease; Z20.822 Contact with and (suspected) exposure to COVID-19; D50.9 Iron deficiency anemia, unspecified; I25.5 Ischemic cardiomyopathy; J44.9 Chronic obstructive pulmonary disease, unspecified; E78.5 Hyperlipidemia, unspecified; M19.90 Unspecified osteoarthritis, unspecified site; Z99.81 Dependence on supplemental oxygen; Z95.2 Presence of prosthetic heart valve; Z95.820 Peripheral vascular angioplasty status with implants and grafts; Z87.891 Personal history of nicotine dependence; I25.2 Old myocardial infarction; Z95.1 Presence of aortocoronary bypass graft; Z85.118 Personal history of other malignant neoplasm of bronchus and lung; Z92.21 Personal history of antineoplastic chemotherapy; Z90.2 Acquired absence of lung [part of]; I69.344 Monoplegia of lower limb following cerebral infarction affecting left non-dominant side; Z95.0 Presence of cardiac pacemaker; Z79.82 Long term (current) use of aspirin; Z79.02 Long term (current) use of antithrombotics/antiplatelets; Z79.899 Other long term (current) drug therapy
CPT/HCPCS: 36415; 71045; 71250; 80048; 80053; 81001; 82607; 82728; 82746; 82962; 83540; 83550; 83605; 83615; 83690; 83735; 83880; 84100; 84145; 84484; 85025; 85610; 85730; 86140; 93005; 94010; 97167; 97530; J1650; J1940; J2405; J2916; U0002

== ENCOUNTER 2021-08-26 14:43 | Emergency (ER) | payer MEDICARE ==
[~2021-08-26 14:43] MED LIST changes: +CARVEDILOL25 MG PO; +FAMOTIDINE20 MG PO; +ISOSORBIDE DINI30 MG PO; +LIPITOR40 MG PO; +NEURONTIN100 MG PO; +VITAMIN B125000 MCG PO
[2021-08-26 16:04] LABS: BASOPHIL 0.2 % (0-2); HCT 29.3 % (42.0-52.0); HGB 9.3 g/dl (13.2-18.0); MCH 27.4 pg (25.0-31.0); MCHC 31.7 g/dL (32.0-36.0); MCV 86.4 fL (78.0-100.0); MONOCYTE 7.6 % (0-12); MPV 11.5 fL (6.0-9.5); NEUTROPHIL 80.9 % (41-80); NRBC 0; PLT 192 K/uL (150-400); RBC 3.39 M/uL (4.70-6.00); RDW 15.8 % (11.5-14.0); WBC 9.6 K/uL (4.0-10.5)
[2021-08-26 16:33] LABS: BUN/CREAT RATIO (CALC) 15.3 RATIO; CREATININE 2.15 mg/dL (0.67-1.17); POTASSIUM 3.4 mmol/L (3.5-5.1)
[2021-08-26 16:42] LABS: BILIRUBIN NEGATIVE (NEGATIVE); BLOOD NEGATIVE Ery/uL (NEGATIVE); CLARITY CLEAR (CLEAR); COLOR YELLOW (YELLOW); GLUCOSE (U) NORMAL (NORMAL); LEUKOCYTES NEGATIVE Leu/uL (NEGATIVE); NITRITE NEGATIVE (NEGATIVE); PROTEIN NEGATIVE (NEGATIVE)
[2021-08-26] MEDS ORDERED: ZPAK PO (18:41)
[2021-08-26] MEDS ORDERED: MEDROL 4MG DOSEP4 MG PO (18:41)
== END 2021-08-26 19:01 | disposition home or self-care (01) ==
LOC: FER 14:43
PROVIDERS: Nurse Practitioner Family
DX: E16.2 Hypoglycemia, unspecified (principal); I25.2 Old myocardial infarction; Z95.1 Presence of aortocoronary bypass graft; Z28.310 Unvaccinated for COVID-19
CPT/HCPCS: 36415; 80048; 81003; 85025; 94640; 94664; J7060

== ENCOUNTER 2021-10-09 14:23 | Day surgery (SDCO) | payer MEDICARE ==
[~2021-10-09] VITALS: Ht 180.3 cm; Wt 93.6 kg
[~2021-10-09 14:23] MED LIST changes: +MEDROL 4MG DOSEP4 MG PO; +ZPAK PO
[2021-10-09 15:55] LABS: BASOPHIL 0.3 % (0-2); EOSINOPHIL 1.9 % (0-7); HCT 32.2 % (42.0-52.0); HGB 9.8 g/dl (13.2-18.0); LYMPHOCYTE 14.5 % (15-48); MCH 26.7 pg (25.0-31.0); MCHC 30.4 g/dL (32.0-36.0); MCV 87.7 fL (78.0-100.0); MONOCYTE 7.5 % (0-12); MPV 11.6 fL (6.0-9.5); NEUTROPHIL 75.4 % (41-80); NRBC 0; PLT 284 K/uL (150-400); RBC 3.67 M/uL (4.70-6.00); RDW 15.3 % (11.5-14.0); WBC 7.9 K/uL (4.0-10.5)
[2021-10-09 16:10] LABS: ALBUMIN 2.9 g/dL (3.4-5.0); BILIRUBIN - TOTAL 0.3 mg/dL (0.2-1.0); CREATININE 1.91 mg/dL (0.67-1.17); GLOBULIN (CALCULATION) 3.9 g/dL; POTASSIUM 4.8 mmol/L (3.5-5.1); TOTAL PROTEIN 6.8 g/dL (6.4-8.2)
[2021-10-09 23:10] LABS: INR 1.05 (0.9-1.2); PROTHROMBIN TIME 13.1 SECONDS (11.8-13.4); PTT 34.9 SECONDS (24.4-34.7)
[2021-10-09] MEDS ORDERED: PROTONIX 40MG T40 MG PO (23:37)
[2021-10-09] MEDS ORDERED: FLONASE ALLER15.8 ML (23:39)
[2021-10-09] MEDS ORDERED: TRESIBA FL200 UNIT/1 SC (23:41)
[2021-10-09 23:48] LABS: CORONAVIRUS 2019 SARS-COV-2 NEGATIVE (NEGATIVE); INFLUENZA A NAA NEGATIVE (NEGATIVE)
[2021-10-10 07:43] LABS: BASOPHIL 0.5 % (0-2); HCT 32.5 % (42.0-52.0); LYMPHOCYTE 13.8 % (15-48); MCH 26.7 pg (25.0-31.0); MCHC 30.8 g/dL (32.0-36.0); MCV 86.9 fL (78.0-100.0); MONOCYTE 8.1 % (0-12); MPV 11.8 fL (6.0-9.5); NEUTROPHIL 75.4 % (41-80); NRBC 0; PLT 285 K/uL (150-400); RBC 3.74 M/uL (4.70-6.00); RDW 15.2 % (11.5-14.0); RETICULOCYTE COUNT 1.7 % (1.0-2.0); WBC 8.8 K/uL (4.0-10.5)
[2021-10-10 07:54] LABS: IRON % SATURATION 18.7 %SAT (20-50)
[2021-10-10 11:00] LABS: BUN/CREAT RATIO (CALC) 10.6 RATIO; CREATININE 1.8 mg/dL (0.67-1.17); POTASSIUM 4.3 mmol/L (3.5-5.1)
[2021-10-10] MEDS ORDERED: BUMEX1 MG PO (15:04)
== END 2021-10-10 16:40 | disposition home health service (06) ==
LOC: FER 14:23 → FMS 21:05
PROVIDERS: Emergency Medicine; Internal Medicine; Nurse Practitioner Acute Care; ADMIT Internal Medicine
DX: I13.0 Hypertensive heart and chronic kidney disease with heart failure and stage 1 through stage 4 chronic kidney disease, or unspecified chronic kidney disease (principal); E11.22 Type 2 diabetes mellitus with diabetic chronic kidney disease; N18.30 Chronic kidney disease, stage 3 unspecified; I50.23 Acute on chronic systolic (congestive) heart failure; J44.9 Chronic obstructive pulmonary disease, unspecified; J96.11 Chronic respiratory failure with hypoxia; D63.1 Anemia in chronic kidney disease; I25.10 Atherosclerotic heart disease of native coronary artery without angina pectoris; I25.2 Old myocardial infarction; E88.09 Other disorders of plasma-protein metabolism, not elsewhere classified; E78.5 Hyperlipidemia, unspecified; E11.51 Type 2 diabetes mellitus with diabetic peripheral angiopathy without gangrene; Z86.73 Personal history of transient ischemic attack (TIA), and cerebral infarction without residual deficits; Z87.891 Personal history of nicotine dependence; Z79.82 Long term (current) use of aspirin; Z79.899 Other long term (current) drug therapy; Z79.4 Long term (current) use of insulin; Z20.822 Contact with and (suspected) exposure to COVID-19
CPT/HCPCS: 36415; 71045; 80048; 80053; 82607; 82728; 83540; 83550; 83605; 83735; 83880; 84484; 85025; 85610; 85730; 86140; 87040; 93005; 94640; 94760; 94762; 97116; 97162; 97166; 97530-GP; 97535; G0378; J1650; U0002

== ENCOUNTER 2021-11-11 10:38 | Inpatient (IN) | payer MEDICARE ==
[~2021-11-11] VITALS: Ht 180.3 cm; Wt 85.8 kg
[~2021-11-11 10:38] MED LIST changes: +FLONASE ALLER15.8 ML; +TRESIBA FL200 UNIT/1 SC
[2021-11-11 11:56] LABS: BASOPHIL 0.2 % (0-2); BILIRUBIN NEGATIVE (NEGATIVE); BLOOD NEGATIVE Ery/uL (NEGATIVE); CLARITY CLEAR (CLEAR); COLOR YELLOW (YELLOW); EOSINOPHIL 0.7 % (0-7); GLUCOSE (U) NORMAL (NORMAL); HGB 11.8 g/dl (13.2-18.0); LEUKOCYTES NEGATIVE Leu/uL (NEGATIVE); LYMPHOCYTE 6.4 % (15-48); MCH 26.5 pg (25.0-31.0); MCHC 31.9 g/dL (32.0-36.0); MONOCYTE 6.3 % (0-12); MPV 10.8 fL (6.0-9.5); NEUTROPHIL 85.9 % (41-80); NITRITE NEGATIVE (NEGATIVE); NRBC 0; PLT 350 K/uL (150-400); PROTEIN NEGATIVE (NEGATIVE); RBC 4.46 M/uL (4.70-6.00); RDW 14.6 % (11.5-14.0); UROBILINOGEN 0.2 mg/dL (0.2-1.0); WBC 15.2 K/uL (4.0-10.5)
[2021-11-11 12:17] LABS: ALBUMIN 2.5 g/dL (3.4-5.0); BILIRUBIN - TOTAL 0.6 mg/dL (0.2-1.0); BUN/CREAT RATIO (CALC) 16.5 RATIO; CREATININE 2.31 mg/dL (0.67-1.17); GLOBULIN (CALCULATION) 4.7 g/dL; POTASSIUM 3.8 mmol/L (3.5-5.1); TOTAL PROTEIN 7.2 g/dL (6.4-8.2)
[2021-11-11 12:22] LABS: LACTIC ACID 1.2 mmol/L (0.4-1.9)
[2021-11-12 06:23] LABS: HCT 29.9 % (42.0-52.0); HGB 9.7 g/dl (13.2-18.0); MCH 26.9 pg (25.0-31.0); MCHC 32.4 g/dL (32.0-36.0); MCV 83.1 fL (78.0-100.0); MPV 11.1 fL (6.0-9.5); RBC 3.6 M/uL (4.70-6.00); RDW 14.8 % (11.5-14.0); WBC 14.1 K/uL (4.0-10.5)
[2021-11-12 06:50] LABS: BUN/CREAT RATIO (CALC) 15.3 RATIO; CREATININE 2.35 mg/dL (0.67-1.17); POTASSIUM 3.3 mmol/L (3.5-5.1)
[2021-11-13 06:36] LABS: HCT 31.5 % (42.0-52.0); HGB 10.1 g/dl (13.2-18.0); MCH 26.6 pg (25.0-31.0); MCHC 32.1 g/dL (32.0-36.0); MCV 83.1 fL (78.0-100.0); RBC 3.79 M/uL (4.70-6.00); RDW 14.6 % (11.5-14.0); WBC 11.9 K/uL (4.0-10.5)
[2021-11-13 06:57] LABS: BUN/CREAT RATIO (CALC) 21.1 RATIO; CREATININE 2.18 mg/dL (0.67-1.17); POTASSIUM 3.9 mmol/L (3.5-5.1)
--- NOTE | 2021-11-13 13:05 | NUR ---
[facility] REFERRAL SENT CALL [phone] ON DISCHARGE
--- NOTE | 2021-11-13 13:06 | NUR ---
PT HAS WALKER AT HOME AND ELECTRIC WHEELCHAIR. LIVES WITH GIRLFRIEND BR[place]GETT [place]. HH RECOMMENDED AND PT IS AGREEABLE.PT HAS NO PREFERENCE ON HH AGENCY.PT AGREED OK TO SEND REFERRAL TO A.REFERRAL SENT
[2021-11-14 06:41] LABS: BASOPHIL 0.1 % (0-2); EOSINOPHIL 0 % (0-7); HCT 30.6 % (42.0-52.0); HGB 9.7 g/dl (13.2-18.0); LYMPHOCYTE 6.7 % (15-48); MCH 26.1 pg (25.0-31.0); MCHC 31.7 g/dL (32.0-36.0); MCV 82.3 fL (78.0-100.0); MONOCYTE 5.6 % (0-12); MPV 11.2 fL (6.0-9.5); NRBC 0; PLT 313 K/uL (150-400); RBC 3.72 M/uL (4.70-6.00); RDW 14.5 % (11.5-14.0); WBC 11.7 K/uL (4.0-10.5)
[2021-11-14 08:27] LABS: BUN/CREAT RATIO (CALC) 26.9 RATIO; CREATININE 1.93 mg/dL (0.67-1.17); POTASSIUM 3.7 mmol/L (3.5-5.1); VANCOMYCIN, TROUGH 9.1 ug/mL (10-20)
--- NOTE | 2021-11-15 13:20 | NUR ---
PT IS CURRENT WITH [facility] ANDREA IS FOLLOWING THIS PATIENT WITH [facility] [phone]
[2021-11-16 07:33] LABS: BASOPHIL 0.1 % (0-2); EOSINOPHIL 0 % (0-7); HCT 32.6 % (42.0-52.0); HGB 10.5 g/dl (13.2-18.0); LYMPHOCYTE 6.7 % (15-48); MCH 26.2 pg (25.0-31.0); MCHC 32.2 g/dL (32.0-36.0); MCV 81.3 fL (78.0-100.0); MONOCYTE 6.4 % (0-12); MPV 11.5 fL (6.0-9.5); NEUTROPHIL 86.1 % (41-80); NRBC 0; PLT 326 K/uL (150-400); RBC 4.01 M/uL (4.70-6.00); RDW 14.4 % (11.5-14.0); WBC 14.5 K/uL (4.0-10.5)
[2021-11-16 08:34] LABS: BUN/CREAT RATIO (CALC) 32.8 RATIO; C-REACTIVE PROTEIN 3.8 mg/dL (<=0.90); CREATININE 2.01 mg/dL (0.67-1.17); FOLIC ACID (SERUM) 3.8 ng/mL (8.6-58.9); POTASSIUM 4.2 mmol/L (3.5-5.1)
[2021-11-16] MEDS ORDERED: ADVAIR 100-501 EACH INH (10:57)
[2021-11-16] MEDS ORDERED: INCRUSE ELLI62.5 MCG INH (10:57)
[2021-11-16] MEDS ORDERED: CUBICIN RF500 MG IV (11:27)
[2021-11-16] MEDS ORDERED: TRELEGY ELLIPT1 EACH INH (12:15)
--- NOTE | 2021-11-16 14:20 | NUR ---
PT. IS CURRENT WITH [facility]. NOTIFIED JUAN AT [facility] THAT PT. WILL BE GOING HOME WITH IV DAPTOMYCIN 850 MG Q 24 HOURS. 1ST AT HOME DOSE TO START TOMORROW. [facility] WILL PROVIDE THE MEDICINE AND [facility] WILL ADMINISTER IT STARTING TOMORROW.
--- NOTE | 2021-11-16 14:44 | NUR ---
Order received for PICC Line. Risks and benefits explained for PICC line placement. Verbalized understanding. Consent obtained. Time Out completed with Nitza Ashby RN. Patient's right upper arm baslic vein visualized using the [employer] 6. The site was marked with a surgical marker. Arm circumference and initial PICC length measured. The Sherlock device was placed on the patient's chest in the appropriate position. The patient was draped and prepped in sterile fashion. The area was then numbed with 1 cc of 1 % Lidocaine. Time was given for Lidocaine to take effect. A 21 gauge needle was used to access the vein guided by the Site Rite 6 ultrasound. Blood return noted. The guide wire was advanced through the needle into the vein. The needle was removed and the tourniquet released. The sheath introducer was inserted over the guide wire into the vein. The wire was removed and the cap was placed on the sheath introducer. The 4 FR single lumen Power PICC was trimmed at 44 cm then guided into the position using the Sherlock device. The sheath introducer was removed. Insertion site cleaned, stat lock and sterile dressing applied. STAT CXR was ordered to verify placement.
[2021-11-16] MEDS ORDERED: ONDANSETRON ODT4 MG PO (16:42)
--- NOTE | 2021-11-16 23:26 | NUR ---
TROPONIN LAB OBTAINED FROM PICC LINE ORDERED AND SENT TO LAB.
--- NOTE | 2021-11-17 01:21 | NUR ---
[facility] CALLED, HAS ACCEPTED [facility]. PATIENT'S DAUGHTER NOE NOTFIED OF NEED TO TRANSFER. ACCEPTING PHYSICIAN DR. DAMIAN ALEXANDRA. REPORT CALLED TO URIAH BURRIS RN. COPY OF PATIENTS CHART SENT WITH EMS. PATIENT CONDITON STABLE AT TIME OF TRANSFER, OXYGEN AND CARDIAC MONITORING WILL RESUME PER EMS/ACLS TRANSFER. PATIENT DISCHRAGED VIA STRETCHER @ 0891.
== END 2021-11-17 01:15 | disposition home health service (06) | DRG 289 ==
LOC: FER 10:38 → FMS 13:07
PROVIDERS: Allergy & Immunology Allergy; Emergency Medicine; Nurse Practitioner Acute Care; ADMIT Family Medicine
PROC: 02HV33Z Insertion of Infusion Device into Superior Vena Cava, Percutaneous Approach (ICD-10-PCS; principal; 2021-11-16)
PROC: B24BZZZ Ultrasonography of Heart with Aorta (ICD-10-PCS; 2021-11-16)
DX: I33.0 Acute and subacute infective endocarditis (principal); I50.22 Chronic systolic (congestive) heart failure; J44.1 Chronic obstructive pulmonary disease with (acute) exacerbation; J96.11 Chronic respiratory failure with hypoxia; R78.81 Bacteremia; Z20.822 Contact with and (suspected) exposure to COVID-19; B95.2 Enterococcus as the cause of diseases classified elsewhere; I25.10 Atherosclerotic heart disease of native coronary artery without angina pectoris; E11.22 Type 2 diabetes mellitus with diabetic chronic kidney disease; N18.9 Chronic kidney disease, unspecified; D63.1 Anemia in chronic kidney disease; E87.6 Hypokalemia; H10.419 Chronic giant papillary conjunctivitis, unspecified eye; E11.65 Type 2 diabetes mellitus with hyperglycemia; Z95.2 Presence of prosthetic heart valve; I25.2 Old myocardial infarction; Z79.82 Long term (current) use of aspirin; Z79.899 Other long term (current) drug therapy; Z95.1 Presence of aortocoronary bypass graft; Z87.891 Personal history of nicotine dependence; Z28.310 Unvaccinated for COVID-19
CPT/HCPCS: 36415; 71045; 71250; 74022; 80048; 80053; 80202; 81003; 82607; 82728; 82746; 83036; 83540; 83605; 83880; 84145; 84484; 85025; 86140; 87040; 87077; 87186; 93005; 94010; 94640; 94760; 94762; 97116; 97162; 97166; C1751; J0456; J0696; J0878; J1170; J1642; J1650; J1815; J2020; J2405; J3370; J7030; J7050; J7512; U0002

== ENCOUNTER 2021-12-23 14:05 | Emergency (ER) | payer MEDICARE ==
[~2021-12-23 14:05] MED LIST changes: +ADVAIR 100-501 EACH INH; +CUBICIN RF500 MG IV; +INCRUSE ELLI62.5 MCG INH; +ONDANSETRON ODT4 MG PO; +TRELEGY ELLIPT1 EACH INH
[2021-12-23 15:14] LABS: BASOPHIL 0.6 % (0-2); EOSINOPHIL 6.5 % (0-7); HCT 27.7 % (42.0-52.0); HGB 8.7 g/dl (13.2-18.0); LYMPHOCYTE 13.8 % (15-48); MCH 27.4 pg (25.0-31.0); MCHC 31.4 g/dL (32.0-36.0); MCV 87.1 fL (78.0-100.0); MONOCYTE 6.8 % (0-12); MPV 12.1 fL (6.0-9.5); NRBC 0; PLT 326 K/uL (150-400); RBC 3.18 M/uL (4.70-6.00); RDW 16.2 % (11.5-14.0); WBC 9.7 K/uL (4.0-10.5)
[2021-12-23 15:23] LABS: INR 1.01 (0.9-1.2); PTT 29.7 SECONDS (24.9-34.6)
[2021-12-23 15:38] LABS: ALBUMIN 2.4 g/dL (3.4-5.0); BILIRUBIN - TOTAL 0.2 mg/dL (0.2-1.0); BUN/CREAT RATIO (CALC) 12.8 RATIO; CREATININE 1.96 mg/dL (0.67-1.17); POTASSIUM 4.6 mmol/L (3.5-5.1); TOTAL PROTEIN 6.4 g/dL (6.4-8.2)
[2021-12-23 15:44] LABS: BILIRUBIN NEGATIVE (NEGATIVE); BLOOD NEGATIVE Ery/uL (NEGATIVE); CLARITY CLEAR (CLEAR); COLOR YELLOW (YELLOW); GLUCOSE (U) 3+ mg/dL (NORMAL); LEUKOCYTES TRACE Leu/uL (NEGATIVE); NITRITE NEGATIVE (NEGATIVE); PROTEIN TRACE (LOW) mg/dL (NEGATIVE); UROBILINOGEN 0.2 mg/dL (0.2-1.0)
[2021-12-23 15:46] LABS: LACTIC ACID 1.9 mmol/L (0.4-1.9)
[2021-12-23 15:52] LABS: BACTERIA TRACE; URINARY RBC RARE; URINARY WBC RARE
[2021-12-23 16:23] LABS: CORONAVIRUS 2019 SARS-COV-2 NEGATIVE (NEGATIVE); INFLUENZA A NAA NEGATIVE (NEGATIVE)
== END 2021-12-23 18:53 | disposition home or self-care (01) ==
LOC: FER 14:05
PROVIDERS: Emergency Medicine
DX: R03.1 Nonspecific low blood-pressure reading (principal); I13.0 Hypertensive heart and chronic kidney disease with heart failure and stage 1 through stage 4 chronic kidney disease, or unspecified chronic kidney disease; E11.22 Type 2 diabetes mellitus with diabetic chronic kidney disease; N18.9 Chronic kidney disease, unspecified; I50.20 Unspecified systolic (congestive) heart failure; J44.9 Chronic obstructive pulmonary disease, unspecified; Z28.310 Unvaccinated for COVID-19; Z20.822 Contact with and (suspected) exposure to COVID-19; Z95.0 Presence of cardiac pacemaker; Z95.1 Presence of aortocoronary bypass graft; Z87.891 Personal history of nicotine dependence; Z79.4 Long term (current) use of insulin; Z79.02 Long term (current) use of antithrombotics/antiplatelets; Z86.73 Personal history of transient ischemic attack (TIA), and cerebral infarction without residual deficits
CPT/HCPCS: 36415; 71045; 71250; 80053; 81001; 83605; 83880; 84145; 84484; 85025; 85610; 85730; 87040; 87088; 93005; J7030; U0002